=== PATIENT | female | born 1990 | race Caucasian/White ===

== ENCOUNTER 2024-12-05 10:43 | Emergency (ER) | payer SELFPAY ==
[2024-12-05 10:52] VITALS: BP 135/90; PULSE 88; RESP 14; TEMP 36.9; O2SAT 100; BMI 25.9
--- NOTE | 2024-12-05 10:53 | XR_ITS ---
FINAL REPORT CLINICAL HISTORY: concern for FB long finger pt states son accidentally knocked her arm when she was sewing COMPARISON: None FINDINGS: AP, oblique, and lateral views of the left hand were obtained. There is no prior exam for comparison. There is no acute fracture of the left hand. The joint spaces are preserved. There is a linear metallic foreign body measuring 8 mm in length in the soft tissues of the distal third finger, radial aspect. IMPRESSION: No acute osseous abnormality of the left hand. Linear metallic foreign body, 8 mm in length, in the distal third finger, radial aspect. Reviewed, Interpreted and Dictated by Marta Tom MD Transcribed by Ariela Roa Authenticated and [facility]
[2024-12-05 11:00] VITALS: BP 133/96; PULSE 93; O2SAT 100
[2024-12-05] MEDS: LIDOCAINE 1% 20ML MDV 20 ML IJ (11:29)
[2024-12-05 11:30] VITALS: BP 121/71; PULSE 75; O2SAT 100
--- NOTE | 2024-12-05 11:49 | PC.NURSE ---
pt ambulatory to bathroom
--- NOTE | 2024-12-05 11:53 | ED_ITS ---
Discharge Plan Disposition Patient Disposition: Home, Self-Care Prescriptions Prescriptions: New cephalexin 500 mg capsule 1,000 mg PO BID 5 Days Qty: 20 0RF Referrals Follow up/Referrals: Kiko Ferrer MD [Primary Care Provider] - See instructions Activity Restrictions/Add. Instructions Additional Instructions/Restrictions: Call your family doctor to establish care for this visit to the emergency department and schedule follow-up within 48 hours to ensure improvement. If you have any worsening of your condition or any other concerning signs or symptoms, return to the emergency department or your primary care doctor for further evaluation. Keflex twice daily for 5 days Clinical Impressions Clinical Impression: Foreign body finger Instructions Patient Instructions: DI for Laceration Repair Print Language Print Language: Swedish Discharge ED Provider: Shahid Douglas General Adult HPI General Chief complaint: Wound/Laceration Stated complaint: AO 12/05 0944 sewing needle stuck in Lmiddle finge Time Seen by Provider: 12/05/24 10:52 Mode of Arrival: Ambulatory Source of Information: Patient Description of Symptoms (Recalled from ER Triage Doc. by RN): patient reports she was sewing and the needle went through her left middle finger and is stuck in the finger with a piece of the thread as well. History of Present Illness HPI narrative: Please note that above description of symptoms, in this electronic medical record under categorization of recalled from ER triage doctor by RN are reflective of an initial nursing assessment, however, is not reflective of my full history and physical exam that was personally taken and clarified. Consequentially, this preceding description of symptoms, which may include the patient's categorized chief complaint in the EMR, do not reflect my personal clinical impression, and the ultimate description of history of present illness and patient stated complaints should be deferred to this section of the note. Unless stated otherwise or congruent with this section of the note, additional signs, symptoms, or incongruence should be interpreted as inaccurate with my clinical impression. Related Data Previous Rx's ?Medication ?Instructions ?Recorded cephalexin 500 mg capsule 1,000 mg (2 x 500 mg) PO BID 5 12/05/24 days #20 caps Allergies Allergy/AdvReac Type Severity Reaction Status Date / Time latex (LATEX) Allergy Intermediate I-RASH Verified 12/05/24 11:47 [facility] Disclaimer: The information contained in this section may have been updated after the patient was seen, as this information can be updated by other users. Social History Smoking Status: Never smoker alcohol intake: never current occupational status: unemployed Travel in the last 8 weeks: None ROS Obtained: Yes All systems reviewed & no additional complaints except as documented Physical Exam General General appearance: alert Head Head exam: atraumatic and normocephalic Eye Eye exam: Present normal appearance, PERRL and EOMI Neck Neck exam: Present normal inspection, full ROM and trachea midline Respiratory Respiratory exam: Absent respiratory distress, wheezes, stridor, accessory muscle use or prolonged expiratory phase Cardiovascular Cardiovascular exam: Present other (Pulses equal symmetric in upper and lower extremities) Abdominal Exam Abdominal exam: Present soft; Absent distention, tenderness or pulsatile mass Extremities Exam Extremities exam: Present edema Neurological Exam Neurological exam: Present alert, oriented X3 and CN II-XII intact; Absent motor sensory deficit Skin Skin exam: Present warm and dry; Absent diaphoresis or erythema Medical Decision Making Medical Records Medical records reviewed: Yes I reviewed the patient's medical records. Screening: Per USPSTF and CDC recommendations, given the prevalence of disease in our region, it is our hospital?s policy to screen for HIV and viral Hepatitis for all patients aged 18 and over and those with ongoing risk factors. Jonas Inquiry Pt receiving controlled substance: No Jonas was queried for this patient: No Vital Signs: 12/05/24 10:52 12/05/24 11:00 12/05/24 11:30 Temperature 98.5 F Temperature Source Oral Pulse Rate 93 H 75 Pulse Rate [Right] 88 Respiratory Rate 14 Blood Pressure 133/96 H 121/71 Blood Pressure [Right Arm] 135/90 Blood Pressure Mean [Right Arm] 105 Blood Pressure Source [Right Arm] Automatic Cuff Blood Pressure Position [Right Arm] Sitting 02 Sat by Pulse Oximetry 100 100 100 Oxygen Delivery Method Room Air Orders (Tests/Meds): ED MEDICATIONS Discontinued Medications Generic Name Dose Route Start Last Admin Trade Name Freq PRN Reason Stop Dose Admin Lidocaine HCl 20 ml 12/05/24 11:11 12/05/24 11:29 Lidocaine 1% 20ml Mdv IJ 12/05/24 11:12 20 ml ONCE ONE Administration ORDERS Category Date Time Status XR hand LT min 3V Stat Exams 12/05/24 10:53 Taken Medical Decision Narrative: 33-year-old female presenting with left middle finger injury. She was sewing on a sewing machine, child accidentally bumped her elbow, her finger went into the needle and needle went through her finger. Coming in for further evaluation. It was a brand-new, clean sewing needle, indoors, no other trauma or contamination. History obtained with patient and . On arrival, very clinically well-appearing and in mild pain. She has needle through the lateral aspect of her left middle finger distal phalanx soft tissues. X-rays obtained out of abundance of caution. Independently interpreted does not appear to contact bone. Patient was numbed with 1% lidocaine and field block. Removed with hemostats without issue. Bandage applied. Given pull-through with thread, abundance of caution, Keflex given in Keflex sent to the pharmacy. Because patient at baseline without signs or symptoms of clinical decompensation, deemed appropriate for discharge. Results were relayed to patient who voiced understanding and were agreeable to outpatient management and follow up. I discussed my clinical impression with patient and answered all questions. At this time, the evidence for any other entities in the differential is insufficient to warrant any further testing or ED observation. This was explained as well. Advisory was given that persistent or worsening symptoms require further evaluation. I confirmed the understanding of this discussion. Race Relations Adviser disclaimer Much of this encounter note is an electronic construction supervisor/carpenter spoken language to printed text. Electronic construction supervisor/carpenter of the spoken language may permit errors. Although I have reviewed the note, some errors may still exist. Procedures Foreign Body Removal Time Out Performed: No Site: left and hand Description of foreign body: needle Sedation/Analgesia: other (1% lido) Confirmed by:: direct visualization Complications: none Post-procedure exam: awake, alert Neurovascular: normal distal pulse and normal capillary fill Critical Care Critical Care Time Critical Care Time: No
[2024-12-05] MEDS: cephALEXin 500MG CAPSULE 1000 MG PO (12:49)
[2024-12-05 13:08] VITALS: BP 124/79; PULSE 80; RESP 20; TEMP 36.8; O2SAT 98
== END 2024-12-05 13:09 | disposition home or self-care (01) ==
PROVIDERS: Emergency Provider Emergency Medicine; PCP Family Medicine
DX: S60.453A Superficial foreign body of left middle finger, initial encounter (principal); W27.3XXA Contact with needle (sewing), initial encounter
CPT/HCPCS: 73130; 99283

== ENCOUNTER 2025-05-06 12:31 | Outpatient (CLI) | payer SELFPAY ==
--- OUTSIDE RECORDS SUMMARY | 2025-05-01 13:00 | XMS_ITS | Encounter Summary ---
Author Organization [facility] Address [address] [id number] Care Team Providers Care Coach Wirer Name Role Phone Pcp, No Primary Care Provider Unavailabl e Encounter Details Date Type Department Care Team (Latest Contact Info) Description 05/01/2025 1:00 PM EDT - 05/01/2025 11:59 PM EDT Hospital Encounter [facility] Ul[facility]ound [address] [place] [address] test positive Discharge Disposition: Home or Self Care Social History Tobacco Use Types Packs/Day Years Used Date Smoking Tobacco: Never Smokeless Tobacco: Never Alcohol Use Standard Drinks/Week Comments Not Currently 0 (1 standard drink = 0.6 oz pur e alcohol) Estimated Date of Delivery Comme nts Yes 11/21/2025 Based on last me nstrual period of 02/14/2025 Sex and Gender Information Value Date Recorded Sex Assigned at Not on file Legal Sex Female 11:04 AM EST Gender Identity Not on file Sexual Orientation Not on file documented as of this encounter Medications at Time of Discharge CALCIUM PO Take by mouth. fish oil ([place]-3) 500 MG capsule Take by mouth daily. MAGNESIUM PO Take by mouth. Vit-Fe Fumarate-FA ( PO) Take by mouth. Pyridoxine HCl (VITAMIN B6 PO) Take by mouth. documented as of this encounter Plan of Treatment Upcoming Encounters Date Type Department Care Team (Late st Contact Info) Description 05/22/2025 1:30 PM EDT Appointment [facility] Ultrasound [address] [place] [address] 05/22/2025 2:00 PM EDT [facility] [address], [address] [place] [address] Savita Barker APRN, EDE [address] [place] [address] documented as of this encounter Procedures Procedure Name Priority Date/Time Associated Diagnosis Comments OB US < 14 WEEKS EARLY Routine 05/01/2025 1:23 PM EDT test positive documented in this encounter Results * OB US < 14 Weeks Early (05/01/2025 1:23 PM EDT) Anatomical Region Laterality Modality Body Ultrasound 05/01/2025 1:19 PM EDT Impressions 05/01/2025 1:58 PM EDT The OB Ultrasound you requested has been resulted. Please navigate to the Imaging tab in [employer] for review. This message has been generated by the interface. Narrative Procedure Note Kate Mora MD - 05/01/2025 IMPRESSION: The OB Ultrasound you requested has been resulted. Please navigate to theImaging tab in [employer] for review. This message has been generated by [employer]. us Savita Barker APRN, EDE IMG OB US PROCEDURES Final Result documented in this encounter Visit Diagnoses Diagnosis test positive examination or test, positive result documented in this encounter Additional Health Concerns Assessment Noted Time A Body Mass Index follow-up plan has been documented for the patient 05/01/2025 6:25 PM EDT documented as of this encounter Care Teams Coach Wirer Relationship Specialty Start Date End Date Pcp, [place] [address] PCP - General Family Medicine 05/01/25 documented as of this encounter
--- OUTSIDE RECORDS SUMMARY | 2025-05-01 13:00 | XMS_ITS | Encounter Summary ---
Author Organization [facility] Address [address] [place] [address] Care Team Providers Care Geophysical Engineer Name Role Phone Pcp, No Primary Care Provider Unavailabl e Encounter Details Date Type Department Care Team (Late st Contact Info) Description 05/01/2025 1:00 PM EDT Initial [facility] [address], [address] [place] [address] Savita Barker APRN, CNM [address] [place] [address] GA: 10w6d Social History Tobacco Use Types Packs/Day Years Used Date Smoking Tobacco: Never Smokeless Tobacco: Never Tobacco Cessation:Counseling Given: Not Answered Alcohol Use Standard Drinks/Week Comments Not Currently [...] on file documented as of this encounter Last Filed Vital Signs Vital Sign Reading Time Taken Comments Blood Pressure 115/81 05/01/2025 1:34 PM EDT Pulse 73 05/01/2025 1:34 PM EDT Temperature 36.9 C (98.4 F) 05/01/2025 1:34 PM EDT Respiratory Rate 16 05/01/2025 1:34 PM EDT Oxygen Saturation 98% 05/01/2025 1:34 PM EDT Inhaled Oxygen Concentration - - Weight - - Height - - Body Mass Index - - documented in this encounter Miscellaneous Notes * Progress Notes - Brittany Lima - 05/01/2025 1:00 PM EDT 10w6d Nob/US Us@10w6d (05/01/2025) Prelim: SIUP with out cardiac activity anterior surinder, VIJAYA: normal amount, CRL: 21mm, GS: 41.9m. CRL is not consistent with clinical dates. FHT's not visualized, consistent with MAB. Follow up prn, awaiting MD impression. VB/cramping: Cramping last night into this morning. Vb started this morning as well. No Q/C * Progress Notes - Savita Barker, ROYER, CNM - 05/01/2025 1:00 PM EDT Gynecology Progress Note Subjective 10w6d Nob/US Us@10w6d (05/01/2025) Prelim: SIUP with out cardiac activity anterior surinder, VIJAYA: normal amount, CRL: 21mm, GS: 41.9m. CRL is not consistent with clinical dates. FHT's not visualized, consistent with MAB. Follow up prn, awaiting MD impression. VB/cramping: Cramping last night into this morning. Vb started this morning as well. No Q/C Came due to bleeding and cramping today-- thought to be 11 weeks iup U/s confirms iup--but no fht-- //missed ab-- explained process to she and husb-- prefers home and cytotec// -may consider d and c if too much bleeding-- - 3 normal pregnancies-- never miscarried Known rh positive Review of Systems Objective Visit Vitals BP 115/81 Pulse 73 Temp 36.9 ??C (98.4 ??F) Resp 16 Physical Exam Constitutional: Appearance: Normal appearance. She is normal weight. Comments: thin Genitourinary: Vulva normal. Genitourinary Comments: See u/s-- no fht-- confirms suspicion for MAB Breasts: Right: Normal. Left: Normal. HENT: Head: Normocephalic. Eyes: Pupils: Pupils are equal, round, and reactive to light. Cardiovascular: Rate and Rhythm: Normal rate and regular rhythm. Pulses: Normal pulses. Heart sounds: Normal heart sounds. Pulmonary: Effort: Pulmonary effort is normal. Breath sounds: Normal breath sounds. Abdominal: Palpations: Abdomen is soft. Musculoskeletal: General: Normal range of motion. Cervical back: Normal range of motion. Neurological: General: No focal deficit present. Mental Status: She is alert and oriented to person, place, and time. Skin: General: Skin is warm and dry. Psychiatric: Mood and Affect: Mood normal. Behavior: Behavior normal. Vitals reviewed. Labs: Imaging: Assessment/Plan Assessment & Plan test positive Orders: OB US < 14 Weeks Early; Future Missed Orders: miSOPROStol (Cytotec) 200 MCG tablet; Insert 4 tablets into the vagina 1 time for 1 dose. Insert 4 tablets high into vagina once. May repeat dose 3 days later if needed. documented in this encounter Plan of Treatment Upcoming Encounters Date Type Department Care Team (Late st Contact Info) Description 05/22/2025 1:30 PM EDT Appointment [facility] Ultrasound [address] [place] [address] 05/22/2025 2:00 PM EDT Office [facility] [address], [address] [place] [address] Savita Barker APRN, CNM [address] [place] [address] documented as of this encounter Results * OB US < 14 Weeks Early (05/01/2025 1:23 PM EDT) Anatomical Region Laterality Modality Body Ultrasound 05/01/2025 1:19 PM EDT Impressions 05/01/2025 1:58 PM EDT The OB Ultrasound you requested has been resulted. Please navigate to the Imaging tab in [employer] for review. This message has been generated by the interface. Narrative Procedure Note Kate Mora MD - 05/01/2025 IMPRESSION: The OB Ultrasound you requested has been resulted. Please navigate to theImaging tab in [employer] for review. This message has been generated by [employer]. us Savita Barker APRN, CNM IMG OB US PROCEDURES Final Result documented in this encounter Visit Diagnoses Diagnosis test positive- Primary examination or test, positive result Missed test positive examination or test, positive result documented in this encounter Additional Health Concerns Assessment Noted Time A Body Mass Index follow-up plan has been documented for the patient 05/01/2025 6:25 PM EDT documented as of this encounter Care Teams Geophysical Engineer Relationship Specialty Start Date End Date Pcp, [place] [address] PCP - General Family Medicine 05/01/25 documented as of this encounter
--- OUTSIDE RECORDS SUMMARY | 2025-05-06 12:39 | XMS_ITS | Encounter Summary ---
Author Organization [facility] Address [address] [place] [address] Care Team Providers Care Computer Hardware Developer Name Role Phone Pcp, No Primary Care Provider Unavailabl e Encounter Details Date Type Department Care Team (Late Contact Info) Description 05/03/2025 Orders Only [facility] [address], [address] [place] [address] Emily Lema [place], [place] [address] Miscarriage (Primary Dx) Social History Tobacco Use Types Packs/Day Years [...] on file documented as of this encounter Plan of Treatment Upcoming Encounters Date Type Department Care Team (Late Contact Info) Description 05/22/2025 1:30 PM EDT Appointment [facility] Ul[facility] [address] [place] [address] 05/22/2025 2:00 PM EDT Office Visit [facility] [address], [address] [place] [address] Savita Barker, GAS WELDING MACHINE OPERATOR, CNM [address] [place] [address] Scheduled Orders Name Type Priority Associated Diagnoses Orde r Schedule US Pelvis Transvaginal Imaging Routine Miscarriage Expected: 05/03/2025 (Approximate), Expires: 11/04/2026 documented as of this encounter Visit Diagnoses Diagnosis Miscarriage- Primary Unspecified spontaneous without mention of complication documented in this encounter Additional Health Concerns Assessment Noted Time A Body Mass Index follow-up plan has been documented for the patient 05/01/2025 6:25 PM EDT documented as of this encounter Care Teams Computer Hardware Developer Relationship Specialty Start Date End Date Pcp, [place] [address] PCP - General Family Medicine 05/01/25 documented as of this encounter
--- OUTSIDE RECORDS SUMMARY | 2025-05-06 12:39 | XMS_ITS | Encounter Summary ---
Author Organization [facility] Address [address] [place] [address] Care Team Providers Care Stratigraphy Teacher Name Role Phone Pcp, No Primary Care Provider Unavailabl e Encounter Details Date Type Department Care Team (Late st Contact Info) Description 05/01/2025 Telephone [facility] [address], [address] [place] [address] Dotty Roper APRN, CNM [address] [place] [address] Social History Tobacco Use Types Packs/Day Years [...] on file documented as of this encounter Miscellaneous Notes * Telephone Encounter - Bambi Ortega RN - 05/01/2025 12:27 PM EDT Patient spoke with Brandan Barker APRN, CNM. Will present to clinic for ultrasound today. documented in this encounter Plan of Treatment Upcoming Encounters Date Type Department Care Team (Late st Contact Info) Description 05/22/2025 1:30 PM EDT Appointment [facility] [address] [place] [address] 05/22/2025 2:00 PM EDT Office Visit [facility] [address], [address] [place] [address] Savita Barker, ROYER, CNM [address] [place] [address] documented as of this encounter Visit Diagnoses Not on filedocumented in this encounter Additional Health Concerns Assessment Noted Time A Body Mass Index follow-up plan has been documented for the patient 05/01/2025 6:25 PM EDT documented as of this encounter Care Teams Stratigraphy Teacher Relationship Specialty Start Date End Date Pcp, No [address] [place] [address] PCP - General Family Medicine 05/01/25 documented as of this encounter
--- OUTSIDE RECORDS SUMMARY | 2025-05-06 12:39 | XMS_ITS | Clinical Summary ---
Author Organization [facility] Address [address] [place] [address] Care Team Providers Care Vest Baster Name Role Phone Pcp, No Primary Care Provider Unavailabl e Allergies Active Allergy Reactions Criticality Noted Date Comments Latex Rash Low 05/01/2025 Medications Vit-Fe Fumarate-FA ( PO) Take by mouth. Active fish oil ([place]-3) 500 MG capsule Take by mouth daily. Active CALCIUM PO Take by mouth. Active MAGNESIUM PO Take by mouth. Active Pyridoxine HCl (VITAMIN B6 PO) Take by mouth. Active miSOPROStol (Cytotec) 200 MCG tabletIndicatio ns:Missed Insert 4 tablets into the vagina 1 time for 1 dose. Insert 4 tablets high into vagina once. May repeat dose 3 days later if needed. 8 tablet 1 05/01/2025 05/01/20 Encounters Date Type Department Care Team Description 05/03/2025 Orders Only [facility] [address], [address] [place] [address] Emily Lema Miscarriage (Primary Dx) 05/01/2025 1:00 PM EDT - 05/01/2025 11:59 PM EDT Hospital Encounter [facility] [place] [facility] Ul[facility]ound [address] [place] [address] test positive Discharge Disposition: Home or Self Care 05/01/2025 1:00 PM EDT Initial [facility] [address], [address] [place] [address] Savita Barker, ROYER, EDE GA: [id number] 05/01/2025 Travel 05/01/2025 Telephone [facility] [address], [address] [place] [address] Dotty Roper APRN, EDE from Last 3 Months Social History Tobacco Use Types Packs/Day Years [...] on file Sexual Orientation Not on file Last Filed Vital Signs Vital Sign Reading Time Taken Comments Blood Pressure 115/81 05/01/2025 1:34 PM EDT Pulse 73 05/01/2025 1:34 PM EDT Temperature 36.9 C (98.4 F) 05/01/2025 1:34 PM EDT Respiratory Rate 16 05/01/2025 1:34 PM EDT Oxygen Saturation 98% 05/01/2025 1:34 PM EDT Inhaled Oxygen Concentration - - Weight - - Height - - Body Mass Index - - Plan of Treatment Upcoming Encounters Date Type Department Care Team (Late st Contact Info) Description 05/22/2025 1:30 PM EDT Appointment [facility] [place] [facility] Ultrasound [address] [place] [address] 05/22/2025 2:00 PM EDT Office Visit [facility] [address], [address] [place] [address] Savita Barker APRN, CNM [address] [place] [address] Health Maintenance Due Date Last Done Comments [facility]-Depression Screening 1991 [facility]-HIV Screening 1991 [facility]-Hepatitis C Screening 1991 [facility]-Infant/Child/Adol SDOH Screenings 1991 [facility]-Varicella Vaccines (1 of 2 - 13+ 2-dose series) 12/29/2004 [facility]- SDOH Screenings 12/29/2009 [facility]-Adult SDOH Screenings 12/29/2009 [facility]-DTaP,Tdap,and Td Vaccine s (1 - Tdap) 12/29/2010 [facility]-Hepatitis B Vaccines (1 of 3 - 19+ 3-dose series) 12/29/2010 [facility]-Pap Smear 12/29/2012 HPV Vaccines (1 - 3-dose SCD M series) 12/29/2018 [facility]-Cervical Cancer Screening 12/29/2021 [facility]-HPV/Cotest 12/29/2021 [id number] Vaccine (1 - 20 24-25 season) 2024 [facility]-Influenza Vaccine (#1) 2025 [facility]-RSV Vaccine: 60+ Years o r (1 - Risk 1-dose series) 09/26/2025 [facility]-Zoster Vaccines (1 of 2) 12/29/2041 [facility]-HIB Vaccines Aged Out No longer e ligible based on patient's age to complete this topic [facility]-Hepatitis A Vaccines Aged Out No longer eligible based on patient's age to complete this topic [facility]-IPV Vaccines Aged Out No longer e ligible based on patient's age to complete this topic [facility]-Pneumococcal Vaccine: Pediatrics (0 to 5 Years) and At-Risk Patients (6 to 49 Years) Aged Out No long er eligible based on patient's age to complete this topic [facility]-Rotavirus Vaccines Aged Out No lo nger eligible based on patient's age to complete this topic Procedures Procedure Name Priority Date/Time Associated Diagnosis Comments OB US < 14 WEEKS EARLY Routine 05/01/2025 1:23 PM EDT test positive from Last 3 Months Results * OB US < 14 Weeks Early (05/01/2025 1:23 PM EDT) Anatomical Region Laterality Modality Body Ultrasound 05/01/2025 1:19 PM EDT Impressions 05/01/2025 1:58 PM EDT The OB Ultrasound you requested has been resulted. Please navigate to the Imaging tab in [employer] for review. This message has been generated by the interface. Narrative Procedure Note Kate Mora MD - 05/01/2025 IMPRESSION: The OB Ultrasound you requested has been resulted. Please navigate to theImaging tab in [employer] for review. This message has been generated by theInt[employer]. us Savita Barker APRN, CNM IMG OB US PROCEDURES Final Result from Last 3 Months Care Teams Vest Baster Relationship Specialty Start Date End Date Pcp, No [address] [place] [address] PCP - General Family Medicine 05/01/25
--- OUTSIDE RECORDS SUMMARY | 2025-05-06 12:39 | XMS_ITS | Encounter Summary ---
Author Organization [facility] Address [address] [place] [address] Care Team Providers Care Coal Hiker Name Role Phone Pcp, No Primary Care Provider Unavailabl e Encounter Details Date Type Department Care Team (Latest Contact Info) Description 05/01/2025 Travel Social History Tobacco Use Types Packs/Day Years [...] 05/22/2025 1:30 PM EDT Appointment [facility] Ul[facility]ound [address] [place] [address] 05/22/2025 2:00 PM EDT [facility] [address], [address] [place] [address] Savita Barker APRN, CNM [address] [place] [address] documented as of this encounter Visit Diagnoses Not on filedocumented in this encounter Additional Health Concerns Assessment Noted Time A Body Mass Index follow-up plan has been documented for the patient 05/01/2025 6:25 PM EDT documented as of this encounter Care Teams Coal Hiker Relationship Specialty Start Date End Date Pcp, No [address] [place] [address] PCP - General Family Medicine 05/01/25 documented as of this encounter
--- NOTE | 2025-05-06 12:47 | XR_ITS ---
FINAL REPORT CLINICAL HISTORY: ABD PAIN COMPARISON: None FINDINGS: A PA view of the chest was obtained. The cardiac and mediastinal silhouettes are within normal limits. The lungs are clear. There is no free air beneath the diaphragm. Upright and supine views of the abdomen reveal gas throughout the colon, otherwise a nonspecific gas pattern. There is no evidence of small bowel obstruction. There are no pathologic calcifications. No acute osseous abnormalities identified. IMPRESSION: No acute intrathoracic or intraabdominal abnormality. Reviewed, Interpreted and Dictated by Marta Tom MD Transcribed by Ariela Roa Authenticated and [facility]
== END 2025-05-06 23:59 | disposition home or self-care (01) ==
LOC: RAD 12:37
PROVIDERS: PCP Nurse Practitioner Family; Visit Provider Nurse Practitioner Family
DX: R10.9 Unspecified abdominal pain (principal)
CPT/HCPCS: 74021

== ENCOUNTER 2025-05-08 08:46 | Outpatient (CLI) | payer SELFPAY ==
--- OUTSIDE RECORDS SUMMARY | 2025-05-01 13:00 | XMS_ITS | Encounter Summary ---
Author Organization [facility] Address [address] [id number] Care Team Providers Care Senior Product Consultant Name Role Phone Pcp, No Primary Care Provider Unavailabl e Encounter Details Date Type Department Care Team (Latest Contact Info) Description 05/01/2025 1:00 PM EDT - 05/01/2025 11:59 PM EDT Hospital Encounter [facility] Ul[facility]ound [address] [place] [address] test positive Discharge Disposition: Home or Self [...] CALCIUM PO Take by mouth. fish oil ([place]-3) 500 MG capsule Take by mouth daily. MAGNESIUM PO Take by mouth. Vit-Fe Fumarate-FA ( PO) Take by mouth. Pyridoxine HCl (VITAMIN B6 PO) Take by mouth. documented as of this encounter Plan of Treatment Upcoming Encounters Date Type Department Care Team (Late st Contact Info) Description 05/22/2025 1:30 PM EDT Appointment [facility] Ul[facility]ound [address] [place] [address] 05/22/2025 2:00 PM EDT [facility] [address], [address] [place] [address] Savita Barker APRN, EDE [address] [place] [address] documented as of this encounter [...] Please navigate to the Imaging tab in [employer] for review. This message has been generated by the interface. Narrative Procedure Note Kate Mora MD - 05/01/2025 IMPRESSION: The OB Ultrasound you requested has been resulted. Please navigate to theImaging tab in [employer] for review. This message has been generated [...] documented as of this encounter Care Teams Senior Product Consultant Relationship Specialty Start Date End Date Pcp, [place] [address] PCP - General Family Medicine 05/01/25 documented as of this encounter
--- OUTSIDE RECORDS SUMMARY | 2025-05-01 13:00 | XMS_ITS | Encounter Summary ---
Author Organization [facility] Address [address] [place] [address] Care Team Providers Care Housemaid Name Role Phone Pcp, No Primary Care Provider Unavailabl e Encounter Details Date Type Department Care Team (Late st Contact Info) Description 05/01/2025 1:00 PM EDT Initial [facility] [address], [address] [place] [address] Savita Barker APRN, CNM [address] [place] [address] GA: 10w6d Social History Tobacco [...] Info) Description 05/22/2025 1:30 PM EDT Appointment [facility] Ultrasound [address] [place] [address] 05/22/2025 2:00 PM EDT Office Visit [facility] [address], [address] [place] [address] Savita Barker APRN, CNM [address] [place] [address] documented as of this encounter Results * OB US < 14 Weeks Early (05/01/2025 1:23 PM EDT) Anatomical Region Laterality Modality Body Ultrasound 05/01/2025 1:19 PM EDT Impressions 05/01/2025 1:58 PM EDT The OB Ultrasound you requested has been resulted. Please navigate to the Imaging tab in [employer] for review. This message has been generated by the interface. Narrative Procedure Note Kate Mora MD - 05/01/2025 IMPRESSION: The OB Ultrasound you requested has been resulted. Please navigate to theImaging tab in [employer] for review. This message has been generated by [employer]. us Savita Barker APRN, CNM IMG OB [...] documented as of this encounter Care Teams Housemaid Relationship Specialty Start Date End Date Pcp, [place] [address] PCP - General Family Medicine 05/01/25 documented as of this encounter
--- OUTSIDE RECORDS SUMMARY | 2025-05-08 08:55 | XMS_ITS | Encounter Summary ---
Author Organization [facility] Address [address] [place] [address] Care Team Providers Care Sprayer Insecticide Name Role Phone Pcp, No Primary Care Provider Unavailabl e Encounter Details Date Type Department Care Team (Late Contact Info) Description 05/03/2025 Orders Only [facility] [address], [address] [place] [address] [place] [address] Miscarriage (Primary Dx) Social History Tobacco Use [...] [facility] [address] [place] [address] 05/22/2025 2:00 PM EDT Office Visit [facility] [address], [address] [place] [address] Savita Barker, CARE MANAGEMENT COORDINATOR, CNM [address] [place] [address] Scheduled Orders Name Type Priority [...] documented as of this encounter Care Teams Sprayer Insecticide Relationship Specialty Start Date End Date Pcp, [place] [address] PCP - General Family Medicine 05/01/25 documented as of this encounter
--- OUTSIDE RECORDS SUMMARY | 2025-05-08 08:55 | XMS_ITS | Encounter Summary ---
Author Organization [facility] Address [address] [place] [address] Care Team Providers Care V Belt Mold Assembler And Curer Name Role Phone Pcp, No Primary Care Provider Unavailabl e Encounter Details Date Type Department Care Team (Late st Contact Info) Description 05/01/2025 Telephone [facility] [address], [address] [place] [address] Dotty Roper APRN, CNM [address] [place] [address] Social History Tobacco Use Types [...] Description 05/22/2025 1:30 PM EDT Appointment [facility] [address] [place] [address] 05/22/2025 2:00 PM EDT Office Visit [facility] [address], [address] [place] [address] Savita Barker, ROYER, CNM [address] [place] [address] documented as of this encounter Visit Diagnoses Not on filedocumented in this encounter Additional Health Concerns Assessment Noted Time A Body Mass Index follow-up plan has been documented for the patient 05/01/2025 6:25 PM EDT documented as of this encounter Care Teams V Belt Mold Assembler And Curer Relationship Specialty Start Date End Date Pcp, No [address] [place] [address] PCP - General Family Medicine 05/01/25 documented as of this encounter
--- OUTSIDE RECORDS SUMMARY | 2025-05-08 08:55 | XMS_ITS | Clinical Summary ---
Author Organization [facility] Address [address] [place] [address] Care Team Providers Care Chick Grader Name Role Phone Pcp, No Primary Care Provider Unavailabl e Allergies Active Allergy Reactions Criticality Noted Date Comments Latex Rash Low 05/01/2025 Medications Vit-Fe Fumarate-FA ( PO) Take by mouth. Active fish oil ([place]-3) 500 MG capsule Take by mouth daily. [...] if needed. 8 tablet 1 05/01/2025 05/01/20 25 Encounters Date Type Department Care Team Description 05/03/2025 Orders Only [facility] [address], [address] [place] [address] Emily Lema Miscarriage (Primary Dx) 05/01/2025 1:00 PM EDT - 05/01/2025 11:59 PM EDT Hospital Encounter [facility] [place] [facility] Ultrasound [address] [place] [address] test positive Discharge Disposition: Home or Self Care 05/01/2025 1:00 PM EDT Initial [facility] [address], [address] [place] [address] Savita Barker, ROYER, EDE GA: 10w6d 05/01/2025 Travel 05/01/2025 Telephone [facility] [address], [address] [place] [address] Dotty Roper APRN, EDE from [...] Info) Description 05/22/2025 1:30 PM EDT Appointment [facility] Ultrasound [address] [place] [address] 05/22/2025 2:00 PM EDT Office Visit [facility] [address], [address] [place] [address] Savita Barker APRN, CNM [address] [place] [address] Health Maintenance Due Date Last [...] 12/29/2018 [facility]-Cervical Cancer Screening 12/29/2021 [facility]-HPV/Cotest 12/29/2021 [id number] Vaccine (1 - 20 24-25 season) 2024 [...] Please navigate to the Imaging tab in [employer] for review. This message has been generated by the interface. Narrative Procedure Note Kate Mora MD - 05/01/2025 IMPRESSION: The OB Ultrasound you requested has been resulted. Please navigate to theImaging tab in [employer] for review. This message has been generated by theMax Rumpus. us Savita Barker APRN, CNM IMG OB US PROCEDURES Final Result from Last 3 Months Care Teams Chick Grader Relationship Specialty Start Date End Date Pcp, No [address] [place] [address] PCP - General Family Medicine 05/01/25
--- OUTSIDE RECORDS SUMMARY | 2025-05-08 08:55 | XMS_ITS | Encounter Summary ---
Author Organization [facility] Address [address] [place] [address] Care Team Providers Care Commercial Insulator Name Role Phone Pcp, No Primary Care [...] 05/22/2025 1:30 PM EDT Appointment [facility] [address] [place] [address] 05/22/2025 2:00 PM EDT [facility] Visit [facility] [address], [address] [place] [address] Savita Barker APRN, CNM [address] [place] [address] documented as of this encounter Visit Diagnoses Not on filedocumented in this encounter Additional Health Concerns Assessment Noted Time A Body Mass Index follow-up plan has been documented for the patient 05/01/2025 6:25 PM EDT documented as of this encounter Care Teams Commercial Insulator Relationship Specialty Start Date End Date Pcp, No [address] [place] [address] PCP - General Family Medicine 05/01/25 documented as of this encounter
--- NOTE | 2025-05-08 09:09 | US_ITS ---
FINAL REPORT TECHNIQUE: Sonographic images of the right upper quadrant were obtained. CLINICAL HISTORY: ABD PAIN FINDINGS: PANCREAS: Obscured. LIVER: Homogeneous. No focal hepatic lesion. No intrahepatic biliary ductal dilatation. The portal vein is patent. GALLBLADDER: No gallstones. No gallbladder wall thickening or pericholecystic fluid. COMMON DUCT: 4 mm. Normal for age. RIGHT KIDNEY: The right kidney measures 9.0 cm. There is no hydronephrosis, mass, or stone. FREE FLUID: None. IMPRESSION: Unremarkable ultrasound of the right upper quadrant. Reviewed, Interpreted and Dictated by Marta Tom MD Transcribed by Dolly Soares Authenticated and [facility]
== END 2025-05-08 23:59 | disposition home or self-care (01) ==
PROVIDERS: PCP Nurse Practitioner Family; Visit Provider Nurse Practitioner Family
DX: R10.9 Unspecified abdominal pain (principal)
CPT/HCPCS: 76705

== ENCOUNTER 2025-08-23 09:53 | Outpatient (CLI) | payer SELFPAY | END 2025-08-23 23:59 | disposition home or self-care (01) | LOC: LAB 09:54 | PROVIDERS: PCP Nurse Practitioner Family; Visit Provider Nurse Practitioner Obstetrics & Gynecology | DX: N91.2 Amenorrhea, unspecified (principal) | CPT/HCPCS: 36415; 84144 ==